=== PATIENT | female | born 1935 | race Caucasian/White ===

== ENCOUNTER 2021-08-24 17:39 | Emergency (ER) | payer OTHER ==
[~2021-08-24] VITALS: Ht 172.7 cm; Wt 88.6 kg
[~2021-08-24 17:39] MED LIST: LISI-892 PO; METF-1211 PO; SIMV5TAB59 PO
[2021-08-24 18:23] VITALS: BP 169/60
[2021-08-24] MEDS ORDERED: ACETAMINOPHEN 500 MG TABLET PO ONE (21:30)
[2021-08-24] MEDS ORDERED: CYCLOBENZAPRINE HCL 10 MG TABLET PO ONE (21:30)
[2021-08-24] MEDS ORDERED: CYCL10TA17 PO (22:28)
== END 2021-08-24 23:39 | disposition home or self-care (01) ==
LOC: EMS 17:42
DX: R07.89 Other chest pain (principal); V49.49XA Driver injured in collision with other motor vehicles in traffic accident, initial encounter; Y93.89 Activity, other specified; Y92.89 Other specified places as the place of occurrence of the external cause; Y99.8 Other external cause status
CPT/HCPCS: 71046; 99283